=== PATIENT | female | born 1935 | race Caucasian/White ===

== ENCOUNTER 2016-08-18 11:35 | Emergency (ER) | payer OTHER, MEDICARE, BC ==
[~2016-08-18] VITALS: Ht 154.9 cm; Wt 56.0 kg
[~2016-08-18 11:35] MED LIST: ACET-2158 PO; DIVA125T14 PO; DONE10TA60 PO; LORA-441 PO; MEMA5TAB PO; PANT40TA4 PO; QUET50TA16 PO
[2016-08-18 11:42] VITALS: Ht 154.9 cm; Wt 56.0 kg
[2016-08-18] MEDS ORDERED: OLANZAPINE 10 MG VIAL IM ONE (12:00)
--- NOTE | 2016-08-18 12:04 | ERD ---
ER Documentation Chief Complaint Date/Time DATE: 08/18/16 TIME: 1140 Chief Complaint left index finger lac HPI 81 yo female presents from her senior care after she had her finger accidentally slammed in a door. The patient has advanced dementia and is unable to provide history. ROS All systems reviewed and are negative except as per history of present illness. Medications Home Meds Reported Medications Acetaminophen (TYLENOL 325 MG TAB) 325 Mg Tab, 650 MG PO Q4 Y 02/06/13 Lorazepam* (Ativan*) 0.5 Mg Tablet, 1 MG PO BID Y 02/06/13 Pantoprazole* (Pantoprazole*) 40 Mg Tablet.dr, 40 MG PO AM 02/06/13 Memantine* (Namenda*) 5 Mg Tablet, 5 MG PO BID 02/06/13 Quetiapine Fumarate* (Seroquel*) 50 Mg Tablet, 50 MG PO HS 02/06/13 Divalproex Sodium* (Depakote*) 125 Mg Tablet.dr, 125 MG PO BID 02/06/13 Donepezil* (Aricept* ODT) 10 Mg/Udtablet Tab.rapdis, 5 MG PO HS 02/06/13 Allergies Allergies: Coded Allergies: Quinolones (Verified Allergy, 02/08/13) PMhx/Soc Hx Psychiatric Problems: Yes (DEMENTIA) Hx Miscellaneous Medical Probl: Yes (Advanced dementia, Anxiety, Depression, Fibromyalsia) Hx Alcohol Use: No Hx Tobacco Use: No FmHx Noncontributory for chief complaint Physical Exam Vitals Vital Signs Date Time Temp Pulse Resp B/P Pulse Ox O2 Delivery O2 Flow Rate FiO2 08/18/16 11:42 98.1 89 18 140/89 99 Physical Exam General: Frail elderly female in no acute distress Extremity: The left index finger, the area of concern was examined in detail. There is evidence of a crush type injury. Patient is a small superficial laceration. Patient seem to have tenderness of the distal phalanx. She seems to have normal function of the finger. Patient is neurovascularly intact. Normal tendon function is noted proximal and distal to the injury. No evidence of infection is noted. Compartments are soft and compressible. Skin is intact. Psychiatrically: Patient has an advanced dementia with agitation. She has no ability to participate in her care plan. Results 24 hrs Current Medications Medications (Trade) Dose Ordered Sig/Mauirce Route PRN Reason Start Time Stop Time Status Last Admin Dose Admin Olanzapine (Zyprexa) 10 mg ONCE ONCE IM 08/18/16 12:00 08/18/16 12:01 08/18/16 11:57 Procedures/MDM Patient was taken to a room, seen and examined. Patient required medication for her agitation. I reached out to her primary care doctor to coordinate care Medical decision making: This is an elderly agitated demented 81-year-old female presents with a crush injury to her finger. At this time, the injury itself should heal by secondary intent and given her significant agitation, she is unable to participate in any other significant wound care. At this time, the wound care seems to be more harm than good. Overall, patient has been treated for her obvious anxiety and agitation, but appears to be appropriate for outpatient supportive care Departure Diagnosis: Primary Impression: Laceration Condition: Stable Patient Instructions: Laceration, All Referrals: KB YANG MD (PCP) Additional Instructions: Please change the bandaid twice a day with neosporin. EWA ZAMARRIPA August 18, 2016 12:04
[2016-08-18] MEDS ORDERED: LORAZEPAM 2 MG INJ IM ONE (13:00)
[2016-08-18 14:01] VITALS: BP 157/70; PULSE 92; RESP 22
== END 2016-08-18 14:21 | disposition home or self-care (01) ==
LOC: E/R 11:35
DX: S61.211A Laceration without foreign body of left index finger without damage to nail, initial encounter (principal); R40.2242 Coma scale, best verbal response, confused conversation, at arrival to emergency department; R40.2352 Coma scale, best motor response, localizes pain, at arrival to emergency department; R40.2142 Coma scale, eyes open, spontaneous, at arrival to emergency department; W23.1XXA Caught, crushed, jammed, or pinched between stationary objects, initial encounter; Y92.9 Unspecified place or not applicable
CPT/HCPCS: 96372; 99284; J2060